=== PATIENT | male | born 1955 | race Hispanic/Latino ===

== ENCOUNTER → 2017-08-13 | Outpatient (CLI) | payer MEDICARE ==
[~2017-08-13] MED LIST: AMLODIPINE BESY10 MG PO; ASPIRIN81 MG PO; ATORVASTATIN CA20 MG PO; CLOPIDOGREL75 MG PO; CYCLOBENZAPRINE5 MG PO; FAMOTIDINE20 MG PO; FUROSEMIDE40 MG PO; LISINOPRIL10 MG PO; METFORMIN HCL850 MG PO; METOPROLOL TART25 MG PO
--- NOTE | 2017-08-13 10:44 | Diagnostic Imaging Report ---
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 FINDINGS: Proximal left femur bone mineral density (BMD) (g/cm2):1.093 Femur T-score (standard deviation relative to young adult mean BMD): 0.3 Femur Z-score (standard deviation relative to age-matched control group):0.7 Lumbar bone mineral density (BMD) (g/cm2):0.995 Lumbar T-score (standard deviation relative to young adult mean BMD): -0.9 Lumbar Z-score (standard deviation relative to age-matched control group):-0.2 CONCLUSION: WHO bone mineral classification: Normal World Health Organization Classification: *The Z-score is provided for informational purposes. The T-score is preferable for clinical decisions. RECOMMENDATIONS: Normal \T\ Osteopenia:Calcium supplementation, daily multiple vitamins, and adequate exercise as preventive measures against osteoporosis. Osteoporosis \T\ Severe Osteoporosis:In addition to the above, pharmacologic therapy. Dictated by: Romeo Casanova M.D. on 08/13/2017 at 10:44 Electronically approved by: Romeo Casanova M.D. on 08/13/2017 at 10:44
== END ==
LOC: DX 09:52
PROVIDERS: ATTEND Family Medicine
DX: E11.9 Type 2 diabetes mellitus without complications (principal)
CPT/HCPCS: 77080

== ENCOUNTER 2018-08-20 22:28 | Observation (INO) | payer MEDICARE ==
[~2018-08-20] VITALS: Ht 175.3 cm; Wt 121.6 kg
--- OUTSIDE RECORDS SUMMARY | 2018-08-20 22:31 | XMS REPORT ---
Author Author [facility] Address Unknown Phone Unavailable Care Team Providers Care Area Manager Name Role Phone RODRICK RILEY Unavailable Unavailable Yury NEWMAN Unavailable Unavailable SALVADOR QUINN Unavailable Unavailable Payers Payer Name Policy Type Policy Number Effective Date Expiration Date Problems This patient has no known problems. Allergies, Adverse Reactions, Alerts Allergy Name Allergy Type Status Severity Reaction(s) Onset Date Inactive Date Treating Clinician Comments No Known Allergies DA Active U 2015-05-30 00:00:00 Medications This patient has no known medications. 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 FINDINGS: Proximal left femur bone mineral density (BMD) (g/cm2): 1.093 Femur T-score (standard deviation relative to young adult mean BMD): 0.3 Femur Z-score (standard deviation relative to age-matched control group): 0.7 Lumbar bone mineral density (BMD) (g/cm2): 0.995 Lumbar T-score (standard deviation relative to young adult mean BMD): -0.9 Lumbar Z-score (standard deviation relative to age- matched control group): -0.2 CONCLUSION: WHO bone mineral classification: Normal World Health Organization Classification: *The Z-score is provided for informational purposes. The T-score is preferable for clinical decisions. RECOMMENDATIONS: Normal T Osteopenia: Calcium supplementation, daily multiple vitamins, and adequate exercise as preventive measures against osteoporosis. Osteoporosis T Severe Osteoporosis: In addition to the above, pharmacologic therapy. Dictated by: David Casanova M.D. on 08/13/2017 at 10:44 Electronically approved by: David Casanova M.D. on 08/13/2017 at 10:44 Dictated By: DAVID CASANOVA MD 104 Transcribed By: MANNY on 08/13/171043 COPY TO: RODRICK RILEY MD [facility] (PORTABLE) [place] [address] Patient Name: ASH GORMAN MR #: [id number] : 1955 Age/Sex: 61/M Req #: [id number] Adm Physician: Ordered by: KARI NEWMAN MD Report #: [id number] Location: ER Room/Bed: Procedure: [id number] DX/CHEST SINGLE (PORTABLE) Exam Date: 04/19/17 Exam Time: 1750 REPORT STATUS: Signed PROCEDURE: A single PA view of the chest. COMPARISON: Chest radiograph 02/19/2017 INDICATIONS: HICCUPS FINDINGS: Lines/tubes: None. Lungs: The lungs are well inflated and clear. There is no evidence of pneumonia or pulmonary edema. Pleura: There is no pleural effusion or pneumothorax. Heart and mediastinum: The heart and the mediastinum are unremarkable. Bones: No acute bony abnormality. Upper abdomen: No free air under the diaphragm. IMPRESSION: No acute cardiopulmonary disease. Dictated by: Wilian Barrios M.D. on 04/19/2017 at 18:26 Electronically approved by: Wilian Barrios M.D. on 04/19/2017 at 18:26 Dictated By: WILIAN BARRIOS MD 25 Transcribed By: IN ZOËE on 04/19/171825 COPY TO: KARI NEWMAN MD CHEST 2 VIEWS [place] [address] Patient Name: ASH GORMAN MR #: [id number] : 1955 Age/Sex: 61/M Req #: [id number] Adm Physician: Ordered by: RODRICK RILEY MD Report #: [id number] Location: [facility] Room/Bed: Procedure: [id number] DX/CHEST 2 VIEWS Exam Date: 02/19/17 Exam Time: 1245 REPORT STATUS: Signed PROCEDURE: Frontal and lateral views of the chest. COMPARISON: [facility], DX, CHEST 2 VIEWS, 01/28/2017, 5:50. INDICATIONS: BRONCHOPNEUMONIA FOLLOW UP FINDINGS: Exam mildly limited due to patient rotation. Lines/tubes: None. Lungs: The lungs are well inflated. Interval resolution of the previously visualized right lower lobe opacity with bronchograms consistent with pneumonia. Lungs are grossly clear. There is no evidence of pneumonia or pulmonary edema. Pleura: There is no pleural effusion or pneumothorax. Heart and mediastinum: The heart and the mediastinum are normal. Pulmonary vasculature is normal. Bones: No acute bony abnormality. IMPRESSION: 1. interval resolution of previously visualized right lower lobe pneumonia. Lungs are grossly clear. Morro Tinsley M.D. Dictated by: Morro Tinsley M.D. on 02/19/2017 at 14:06 Electronically approved by: Morro Tinsley M.D. on 02/19/2017 at 14:06 Dictated By: MORRO TINSLEY MD 1406 Transcribed By: MANNY on 02/19/17 1406 COPY TO: RODRICK RILEY MD MRI BRAIN WO [place] [address] Patient Name: ASH GORMAN MR #: [id number] : 1955 Age/Sex: 61/M Req #: [id number] Adm Physician: SALVADOR QUINN MD Ordered by: MARTINEZ NGUYEN MD Report #: [id number] Location: MED/SURG Room/Bed: [facility] Procedure: [id number] MRI/MRI BRAIN WO Exam Date: 01/28/17 Exam Time: 1555 REPORT STATUS: Signed EXAMINATION: MRI of the brain without contrast. HISTORY: TIA, slurred speech COMPARISON: Head CT in 07/08/2015 and 01/24/2017 TECHNIQUE: Sagittal T2; axial DWI, T2, FLAIR, T1-IR, T2 gradient echo; coronal FLAIR. IMAGE QUALITY: Adequate. FINDINGS: Parenchyma: 1. Mild to moderate confluent periventricular, abdi radiata and centrum semiovale white matter hyperintensities as well as scatter foci, most likely nonspecific chronic microvascular ischemic changes. 2. No mass, hemorrhage, acute or chronic infarcts. Skull: Unremarkable. Vessels: Expected flow voids present in the major arteries and dural sinuses. Extra-axial spaces: No abnormal signal intensity or mass effect. Brain volume: Within normal limits for age. Ventricles: No hydrocephalus or displacement. Foramen magnum: Unremarkable. Sella: Unremarkable. Paranasal / mastoid sinuses: No significant inflammatory disease. IMPRESSION: 1. No acute infarcts. 2. Mild to moderate white matter chronic microvascular ischemic changes Signed by: Dr. Regine Tello M.D. on 01/28/2017 7:01 PM Dictated By: REGINE TELLO MD 00 Transcribed By: JUAN on 01/28/171900 COPY TO: MARTINEZ NGUYEN MD MODIFIED BA. [place] [address] Patient Name: ASH GORMAN MR #: [id number] : 1955 Age/Sex: 61/M Req #: [id number] Adm Physician: SALVADOR QUINN MD Ordered by: MARTINEZ NGUYEN MD Report #: [id number] Location: MED/SURG Room/Bed: [facility] Procedure: [id number] DX/MODIFIED BA. SWALLOW Exam Date: 01/28/17 Exam Time: 1520 REPORT STATUS: Signed PROCEDURE: MODIFIED BA. SWALLOW INDICATION: Right vocal cord paralysis with possible aspiration pneumonia. COMPARISON: None. TECHNIQUE: Various viscosities of barium and barium coated food items were listed under fluoroscopic observation in coordination with speech pathology. Fluoroscopy time: 0.7 min Cumulative air kerma: 8.292 mGy FINDINGS: No evidence of penetration or aspiration. Moderate vallecular pooling which clears. The study is limited by AP evaluation CONCLUSION: No evidence of penetration or aspiration within the limitations of AP imaging. Dictated by: David Casanova M.D. on 01/29/2017 at 8:52 Electronically approved by: David Casanova M.D. on 01/29/2017 at 8:52 Dictated By: DAVID CASANOVA MD El ectronically Signed By: DAVID CASANOVA MD on 01/29/17851 Transcribed By: MANNY on 01/29/17851 COPY TO: MARTINEZ NGUYEN MD CAROTID DOPPLER [place] [address] Patient Name : ASH GORMAN MR #: [id number] : 1955 Age/Sex: 61/M Adm Physician : SALVADOR QUINN MD Admit Date : 01/27/17 Location : MED/SURG Room/Bed : [facility] REPORT: Cardiology Report DATE OF STUDY: January 28, 2017 DOPPLER SCAN OF CAROTIDS The left and right carotid arteries were interrogated using the Duplex scanning method. Left carotid artery shows poorly visualized distal left internal carotid artery. There is no high-grade stenosis or flow impairment. Left vertebral flow appears antegrade. Right carotid artery shows poorly visualized distal internal carotid artery. There is mild intimal thickening and plaquing. Right vertebral flow appears to be antegrade. CONCLUSIONS: 1. Suboptimal study with the distal internal carotid arteries poorly visualized bilaterally. 2. In the area where visualized no high- grade stenosis or flow impairment were detected. 3. Vertebral flow appears to be normal direction bilaterally. Job#: [id number] cc: SALVADOR QUINN MD Signature Date Dictated By: PETAR JULIEN MD Transcribed By: SMEDS on 01/28/17 <Electronically signed by PETAR JULIEN MD><<Signature on File>>01/30/17 1017 COPY TO: CHEST 2 VIEWS [place] [address] Patient Name: ASH GORMAN MR #: [id number] : 1955 Age/Sex: 61/M Req #: [id number] Adm Physician: SALVADOR QUINN MD Ordered by: SALVADOR QUINN MD Report #: [id number] Location: MED/SURG Room/Bed: [facility] Procedure: [id number] DX/CHEST 2 VIEWS Exam Date: 01/28/17 Exam Time: 0556 REPORT STATUS: Signed EXAMINATION: CHEST 2 VIEWS INDICATION: Cough. COMPARISON: 01/27/2017 FINDINGS: TUBES and LINES: None. LUNGS: Lungs are not well inflated. Confluent opacity more conspicuously noted on today's exam with air bronchogram consistent with pneumonia. PLEURA: No pleural effusion or pneumothorax. HEART AND MEDIASTINUM: The cardiomediastinal silhouette is unremarkable. BONES AND SOFT TISSUES: No acute osseous lesion. Soft tissues are unremarkable. UPPER ABDOMEN: No free air under the diaphragm. IMPRESSION: Findings are compatible with right lower lobe pneumonia. Follow- up until resolution after treatment is recommended Signed by: Dr. Ash Looney M.D. on 01/28/2017 6:31 AM Dictated By: ASH SORTO MD E lectronically Signed By: ASH SORTO MD on 01/28/17630 Transcribed By: JUAN on 01/28/17630 COPY TO: SALVADOR QUINN MD CHEST SINGLE (PORTABLE) [place] [address] Patient Name: ASH GORMAN MR #: [id number] : 1955 Age/Sex: 61/M Req #: [id number] Adm Physician: SALVADOR QUINN MD Ordered by: MAGGIE HERNANDEZ MD Report #: [id number] Location: [facility] Room/Bed: [place] [address] Procedure: [id number] DX/CHEST SINGLE (PORTABLE) Exam Date: 01/27/17 Exam Time: 0730 REPORT STATUS: Signed Portable chest x-ray INDICATION: Wheezing COMPARISON: Chest x-ray 01/24/2017 FINDINGS: Frontal view of the chest obtained at 0742 hours. The cardiac silhouette is enlarged and stable in morphology. The pulmonary vascular markings are normal. The lungs demonstrate diffuse hyperinflation. No mass or infiltrate. The costophrenic angles are sharp. There is no pneumothorax. The osseous structures are intact without focal osseous lesion. IMPRESSION: 1. Stable cardiomegaly and pulmonary hyperinflation suggestive of COPD. 2. No acute cardiopulmonary process. Signed by: Dr. Tri Arevalo MD on 01/27/2017 10:10 AM Dictated By: TRI AREVALO MD 1010 Transcribed By: JUAN on 01/27/171009 COPY TO: MAGGIE HERNANDEZ MD CHEST 2 VIEWS [place] [address] Patient Name: ASH GORMAN MR #: [id number] : 1955 Age/Sex: 61/M Req #: [id number] Adm Physician: Ordered by: JANICE JIMENEZ MD Report #: [id number] Location: ER Room/Bed: Procedure: [id number] DX/CHEST 2 VIEWS Exam Date: 01/24/17 Exam Time: 1931 REPORT STATUS: Signed EXAMINATION: CHEST 2 VIEWS INDICATION: Possible stroke. Sepsis. COMPARISON: July 08, 2015 DISCUSSION: Lines/tubes: None. Lungs: The lungs are well inflated and clear. There is no evidence of pneumonia or pulmonary edema. Pleura: There is no pleural effusion or pneumothorax. Heart and mediastinum: Cardiomediastinal silhouette is upper limit of normal. Pulmonary vasculature is normal. Bones and soft tissues: No acute bony abnormalities. Mild degenerative changes in the thoracic spine IMPRESSION: No acute cardiopulmonary abnormalities. Signed by: Dr. Ceci Melvin M.D. on 01/24/2017 7:58 PM Dictated By: CECI MELVIN MD, MD 57 Transcribed By: JUAN on 01/24/171957 COPY TO: JANICE JIMENEZ MD CT BRAIN WO [place] [address] Patient Name: ASH GORMAN MR #: [id number] : 1955 Age/Sex: 61/M Req #: [id number] [facility] Physician: Ordered by: JANICE JIMENEZ MD Report #: [id number] Location: ER Room/Bed: Procedure: [id number] CT/CT BRAIN WO Exam Date: 01/24/17 Exam Time: 1931 REPORT STATUS: Signed History:Right side weakness Comparison studies:07/08/2015 Technique: Axial images were obtained from the skull base to the vertex. Coronal and sagittal images reconstructed from the axial data. Intravenous contrast: None Findings: Scalp/skull: No abnormalities. Extra-axial spaces: No masses. No fluid collections. Brain sulci: Mildly prominent. Ventricles: Mild compensatory dilatation. No hydrocephalus. Parenchyma: Scattered small hypodensities in the supratentorial white matter are small vessel ischemic changes. No masses, hemorrhage, acute or chronic cortical vascular insults. Sellar/suprasellar region: No abnormalities. Craniocervical junction: Patent foramen magnum. No Chiari one malformation. Incidental findings: Atherosclerotic calcifications in the carotid siphons a nd vertebral arteries . Impression: No acute abnormalities. stable Chronic findings: 1. Mild generalized volume loss. 2. Mild supratentorial white matter small vessel ischemic changes. Signed by: DR Caesy Canela M.D. on 01/24/2017 9:00 PM Dictated By: CASEY GHOTRA MD 99 Transcribed By: JUAN on 01/24/172099 COPY TO: JANICE JIMENEZ MD
--- NOTE | 2018-08-21 00:50 | Diagnostic Imaging Report ---
Examination: Single AP view of the chest. COMPARISON: January 18, 2017 INDICATION: Chest pain DISCUSSION: Lines/tubes: None. Lungs: The lungs are well inflated and clear. No pneumonia or pulmonary edema. Pleura: No pleural effusion or pneumothorax. Heart and mediastinum: The heart and the mediastinum are unremarkable. Bones and soft tissues: No acute bony abnormalities. IMPRESSION: 1. No acute cardiopulmonary abnormalities. Signed by: Dr. Bari Salguero M.D. on 08/21/2018 12:47 AM
[2018-08-21 01:10] LABS: ALBUMIN 4.1 g/dL (3.5-5.0); ALBUMIN/GLOBULIN RATIO 1.2 (0.8-2.0); ANION GAP 17.8 mmol/L (8-16); BASOPHILS # (AUTO) 0.1 (0.0-0.1); BASOPHILS % 0.7 % (0.0-1.0); CALCIUM 9.9 mg/dL (8.4-10.2); CREATININE, SERUM 1.61 mg/dL (0.72-1.25); EOSINOPHILS # (AUTO) 0.4 (0.0-0.4); EOSINOPHILS % 4.9 % (0.0-6.0); HEMATOCRIT 44.1 % (38.2-49.6); HEMOGLOBIN 14.6 g/dL (14.0-18.0); LYMPHOCYTES # (AUTO) 1.8 (1.0-3.2); LYMPHOCYTES % 20.6 % (18.0-39.1); MEAN CORPUSCULAR HEMOGLOBIN 28.8 pg (28-32); MEAN CORPUSCULAR HGB CONC 33.1 g/dL (31-35); MONOCYTES # (AUTO) 0.7 (0.2-0.8); MONOCYTES % 7.7 % (4.4-11.3); NEUTROPHILS # (AUTO) 5.8 (2.1-6.9); NEUTROPHILS % 65.6 % (38.7-80.0); PLATELET COUNT 279 x10e3/uL (140-360); POTASSIUM 3.8 mmol/L (3.5-5.1); RED BLOOD COUNT 5.07 x10e6/uL (4.3-5.7); RED CELL DISTRIBUTION WIDTH 12.8 % (11.7-14.4)
--- NOTE | 2018-08-21 01:10 | NUR ---
REPORT GIVEN TO HEATHER VILLATORO
[2018-08-21 01:39] LABS: CREATINE KINASE MB 2.1 ng/mL (0-5.0)
[2018-08-21] MEDS ORDERED: ASPIRIN 81 MG CHEW TAB PO ONE (02:00)
[2018-08-21 05:48] VITALS: BP 184/102
== END 2018-08-21 04:35 | disposition left against medical advice (07) ==
LOC: ER 22:28 → ERHOLD 08-21 02:22
PROVIDERS: ADMIT Family Medicine; ATTEND Family Medicine
DX: R07.9 Chest pain, unspecified (principal); I10 Essential (primary) hypertension; E11.9 Type 2 diabetes mellitus without complications; E78.5 Hyperlipidemia, unspecified; Z79.82 Long term (current) use of aspirin; Z79.84 Long term (current) use of oral hypoglycemic drugs
CPT/HCPCS: 36415; 71045; 80053; 82550; 82553; 83880; 84484; 85025; 93005; 99284; G0378